=== PATIENT | male | born 1990 | race African-American/Black ===

== ENCOUNTER 2024-05-26 04:18 | Emergency (ER) | payer SELFPAY ==
[~2024-05-26] VITALS: Ht 182.9 cm; Wt 74.1 kg
[2024-05-26 04:35] VITALS: BP 120/73; PULSE 49; RESP 18; O2SAT 98
[2024-05-26] MEDS ORDERED: KETO2CRE4 TOP (06:57)
[2024-05-26] MEDS ORDERED: CEPH500C PO (06:57)
== END 2024-05-26 07:02 | disposition home or self-care (01) ==
LOC: ER 04:18
DX: B35.8 Other dermatophytoses (principal); Z79.899 Other long term (current) drug therapy

== ENCOUNTER 2024-06-20 21:26 | Emergency (ER) | payer MEDICAID, OTHER ==
[~2024-06-20] VITALS: Ht 182.9 cm; Wt 62.5 kg
[~2024-06-20 21:26] MED LIST: CEPH500C PO; KETO2CRE4 TOP
[2024-06-20 22:46] VITALS: BP 150/95; PULSE 96; RESP 18; TEMP 99; O2SAT 96
[2024-06-20] MEDS ORDERED: TRAZ-228 PO (22:47)
== END 2024-06-20 23:00 | disposition home or self-care (01) ==
LOC: ER 21:26
DX: F41.9 Anxiety disorder, unspecified (principal); F40.248 Other situational type phobia; G47.00 Insomnia, unspecified; Z79.899 Other long term (current) drug therapy
CPT/HCPCS: 93005

== ENCOUNTER 2024-10-21 19:02 | Emergency (ER) | payer SELFPAY ==
[~2024-10-21] VITALS: Ht 180.3 cm; Wt 65.1 kg
[~2024-10-21 19:02] MED LIST changes: +TRAZ-228 PO
[2024-10-21 21:20] VITALS: BP 108/63; PULSE 53; RESP 18; TEMP 98.1; O2SAT 99
[2024-10-21] MEDS ORDERED: FLUC200T50 PO (21:35)
[2024-10-21] MEDS ORDERED: CLOTCRE3 EX (21:35)
--- NOTE | 2024-10-21 21:35 | ED.PDOC ---
History of Present Illness(SKN HPI Comments PT PRESENTED TO ED FOR CHRONIC RING WORM IRRITATION X1 YEAR. NOTED ON RIGHT EYE LID AND RIGHT CHEECK BONE. SKIN DICOLORATION NOTED. PT STATED HE IS USINGPRESCRIBED OINTMENT W/O RELIEF Chief Complaint: Rash Time Seen by MD: 19:17 History of Present Illness: Nurses Notes, Medications, Allergies Allergies: Coded Allergies: NO KNOWN ALLERGIES (Unverified , 05/26/24) Home Meds Active Scripts Clotrimazole W/ Betamethasone (Clotrimazole/Betamethason 1-0.05 %) 1 Cre Cre, 1 CRE EX BID for 14 Days, #15 GRAMS Apply thin layer to the affected area twice daily times 14 days Prov:JAIME GARCIA 10/21/24 Fluconazole (Fluconazole) 200 Mg Tab, 1 TAB PO DAILY for 14 Days, #14 TAB Prov:JAIME GARCIA 10/21/24 Trazodone Hcl (Trazodone Hcl) 100 Mg Tab, 1 TAB PO QPM, #14 TAB HALF OR 1 TAB BY MOUTH AT SLEEP NEEDED FOR INSOMNIA Prov:JAIME GARCIA 06/20/24 Cephalexin Monohydrate (Cephalexin) 500 Mg Cap, 1 CAP PO QID, #28 CAP Prov:CHASITY HURTADO 05/26/24 Ketoconazole (Ketoconazole) 2 % Cre, 1 APPLIC TOP BID, #30 GRAMS Prov:CHASITY HURTADO 05/26/24 Information Source: Patient Mode of Arrival: Ambulatory Past Medical History PAST MEDICAL HISTORY: Denies Surgical History: Denies all surgeries Family History Family History: Reviewed,noncontributory to illness Social History Smoker: Non-Smoker Alcohol: Denies ETOH Use Drugs: Denies Drug Use Lives In: Home Constitutional: denies: chills, diaphoresis, fatigue, fever, malaise, sweats, weakness, others EENTM: denies: blurred vision, double vision, ear bleeding, ear discharge, ear drainage, ear pain, ear ringing, eye pain, eye redness, hearing loss, mouth pain, mouth swelling, nasal discharge, nose bleeding, nose congestion, nose pain, photophobia, tearing, throat pain, throat swelling, voice changes, others Respiratory: denies: cough, hemoptysis, orthopnea, SOB at rest, shortness of breath, SOB with excertion, stridor, wheezing, others Cardiovascular: denies: chest pain, dizzy spells, diaphoresis, Dyspnea on exertion, edema, irregular heart beat, left arm pain, lightheadedness, palpitations, PND, syncope, others Gastrointestinal: denies: abdomen distended, abdominal pain, blood streaked bowels, constipated, diarrhea, dysphagia, difficulty swallowing, hematemesis, melena, nausea, poor appetite, poor fluid intake, rectal bleeding, rectal pain, vomiting, others Genitourinary: denies: burning, dysuria, flank pain, frequency, hematuria, incontinence, penile discharge, penile sore, pain, testicle pain, testicle swelling, urgency, others Neurological: denies: dizziness, fainting, headache, left sided numbness, left sided weakness, numbness, paresthesia, pre-existing deficit, right sided n umbness, right sided weakness, seizure, speech problems, tingling, tremors, weakness, others Musculoskeletal: denies: back pain, gout, joint pain, joint swelling, muscle pain, muscle stiffness, neck pain, others Integumetry: reports: rash (Rash on cheek and right upper eyelid); denies: bruises, change in color, change in hair/nails, dryness, laceration, lesions, lumps, wounds, others Allergic/Immunocompromised: denies: Difficulty Healing, Frequent Infections, Hives, Itching, others Hematologic/Lymphatic: denies: anemia, blood clots, easy bleeding, easy bruising, swollen glands, others Psychiatric: denies: anxiety, bipolar disorder, depression, hopeless, panic disorder, schizophrenia, sleepless, suicidal, others Physical Exam General Appearance: No Apparent Distress, Normal HEENT: Normal ENT Inspection, Pharynx Normal, TMs Normal Neck: Full Range of Motion, Non-Tender Respiratory: Lungs Clear, No Respiratory Distress, Normal Breath Sounds Cardiovascular: No Edema, No Murmur, Normal Peripheral Pulses, Regular Rate /Rhythm Breast Exam: Deferred Gastrointestinal: Non Tender, Soft Genitalia: Deferred Pelvic: Deferred Rectal: Deferred Extremities: Normal capillary refill, Normal inspection, Normal range of motion, Non-tender, No pedal edema Musculoskeletal : Apperance: Normal Neurologic: Alert, it applications analyst II-XII nml as Tested, No Motor Deficits, Normal Affect, Normal Mood, No Sensory Deficits Cerebellar Function: Normal Reflexes: Normal Skin: Dry, Normal Color, Rash (Indurated dry lesion to right cheek and right upper eyelid no noted drainage or streaking.), Warm Lymphatic: No Adenopathy Was a procedure done? Was a procedure done?: No Differential Diagnosis (INTG) Differential Diagnosis: Cellulitis Differential Diagnosis: Atopic dermatitis, Candidiasis, Impetigo X-Ray, Labs, Meds, VS Vital Signs Date Time Temp Pulse Resp B/P (MAP) Pulse Ox O2 Delivery O2 Flow Rate FiO2 10/21/24 21:20 98.1 53 18 108/63 (78) 99 98.1 10/21/24 21:20 53 18 99 Room Air 10/21/24 19:32 98.1 64 18 132/58 (82) 98 X-Ray, Labs, Meds, VS Comment Likely fungal has been going on for 1 year we will trial oral fluconazole once daily x2 weeks and clotrimazole/betamethasone advised to avoid alcohol while on medication. Advised if no improvement schedule an appointment PCP for referral to Dermatology consider biopsy. ER return precautions given patient agrees with discharge plan of care. Time of 1ST Reevaluation: 21:32 Reevaluation 1ST: Improved Patient Education/Counseling: Diagnosis, Treatment, Prognosis, Need For Follow Up Family Education/Counseling: No Family Present Departure 1 Departure Time of Disposition: 21:32 Impression: Primary Impression: Rash and nonspecific skin eruption Disposition: HOME / SELF CARE / HOMELESS Condition: Stable e-Prescriptions Clotrimazole W/ Betamethasone (Clotrimazole/Betamethason 1-0.05 %) 1 Cre Cre 1 CRE EX BID for 14 Days, #15 GRAMS Apply thin layer to the affected area twice daily times 14 days Prov: JAIME GARCIA 10/21/24 Fluconazole (Fluconazole) 200 Mg Tab 1 TAB PO DAILY for 14 Days, #14 TAB Prov: JAIME GARCIA 10/21/24 Discharged With: Self Critical Care Note Critical Care Time?: No Stability Stability form required: JAIME Colvin Oct 21, 2024 21:35
== END 2024-10-21 21:57 | disposition home or self-care (01) ==
LOC: ER 19:02
DX: R21 Rash and other nonspecific skin eruption (principal); H57.11 Ocular pain, right eye; R51.9 Headache, unspecified; Z79.899 Other long term (current) drug therapy